=== PATIENT | male | born 1990 | race Caucasian/White ===

== ENCOUNTER → 2016-09-18 | Outpatient (CLI) | payer OTHER | LOC: BMCIMAGING 15:49 | PROVIDERS: ATTEND Family Medicine | DX: S93.491A Sprain of other ligament of right ankle, initial encounter (principal); M25.471 Effusion, right ankle ==

== ENCOUNTER 2017-05-07 13:33 | Emergency (ER) | payer MEDICAID ==
[2017-05-07 13:38] VITALS: BP 161/97
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
== END 2017-05-07 15:38 | disposition home or self-care (01) ==
DX: M76.61 Achilles tendinitis, right leg (principal); V19.00XA Pedal cycle driver injured in collision with unspecified motor vehicles in nontraffic accident, initial encounter; Y92.89 Other specified places as the place of occurrence of the external cause; Y99.8 Other external cause status; Y93.55 Activity, bike riding
CPT/HCPCS: L4386

== ENCOUNTER 2018-04-01 11:11 | Emergency (ER) | payer MEDICAID ==
[2018-04-01] MEDS ORDERED: ACETAMINOPHEN 500 MG TAB PO ONE (12:05)
--- NOTE | 2018-04-01 12:06 | EDPHY ---
General - History Smoking Status: Never smoked Time Seen by Provider: 04/01/18 12:02 Narrative: CLINICAL IMPRESSION: VIRAL TONSILLITIS ASSESSMENT/PLAN: 27-year-old otherwise healthy male presents to the emergency department with 3 days of sore throat, congestion and cough. Vital signs stable, afebrile, tolerating secretions well, no hypoxia. No clinical signs to suggest acute mucopurulent otitis media, acute sinusitis, exudative tonsillitis, peritonsillar abscess, retropharyngeal abscess, epiglottitis, or lower respiratory disease. Rapid strep is negative. Patient declined flu testing. No clinical indication for antibiotics at this time. Throat culture pending. Supportive [id number] treatments discussed, PCP follow-up recommended, warning signs return to emergency department sooner alignment discharge. DIFFERENTIAL DX: Differential includes but not limited to viral pharyngitis, tonsillitis, strep tonsillitis, influenza, influenza like syndrome. ED PROCEDURES: See lab and/or imaging results below Negative rapid strep ED COURSE: Patient seen examined by myself at 12:05 p.m.. Plan for rapid strep, Tylenol, suspect viral infection CHIEF COMPLAINT: Sore throat, congestion, cough HPI: 27-year-old otherwise healthy male presents to the emergency department with 3 days of sore throat, congestion, mild cough. Patient reports he is mostly bothered by his throat. He has some aching in his ears. He reports subjective fever and chills. He did not get a flu shot this year. He is concerned he may have strep throat. He denies exposure. He is able to tolerate food and liquid but with pain. He is able to tolerate secretions. No reported underlying pulmonary disease or asthma. PAST MEDICAL HISTORY: None reported Pertinent Past Surgical History: None reported Family History: Noncontributory Social History: Nonsmoker, otherwise healthy REVIEW OF SYSTEMS: A full 10 point review of systems was negative except for those mentioned in HPI. PHYSICAL EXAM: General Appearance: Alert, oriented, appropriate, cooperative, NAD, well hydrated, non-toxic appearing, tolerating secretions well VSS, no hypoxia. HEENT: TMs are clear bilaterally no perforation or FB, no injection, no evidence of serous or mucopurulent otitis. Oropharynx is with mild erythema, no exudates or tonsillar asymmetry. Dentition without abnormality. Eyes: PERRLA, no acute vision change, nystagmus, swelling, discharge, pain or photosensitivity. Conjunctiva pink, no pallor or injection Neck: Supple, nontender, no lymphadenopathy, no midline pain, FROM, no meningismus. Respiratory: There are no retractions, lungs are clear to auscultation. Cardiac: Regular rate and rhythm, no murmurs or gallops. Skin: Warm, dry, no rashes, no nodules on palpation. MEDICAL DECISION MAKING: Patient was seen independently. Secondary supervising physician at time of evaluation was: Dr. Verma . Diagnosis: Viral tonsillitis. New, requires workup Summary: See Assessment and Plan for summary of ED visit Clinical lab tests: ordered / reviewed. Patient Progress: Improved, stable for discharge. (Terry Vogt) Medical Decision Making: I did not see this patient while he was in the emergency department. However his care was discussed with the PA while the patient was in the department. I agree with treatment plan and management (Larry Verma) - Objective Vital Signs: Initial Vital Signs Temperature (C) 36.8 C 04/01/18 11:13 Heart Rate 92 04/01/18 11:13 Respiratory Rate 18 04/01/18 11:13 Blood Pressure 142/92 H 04/01/18 11:13 O2 Sat (%) 95 04/01/18 11:13 O2 Delivery Mode Room Air Allergies/Adverse Reactions: No Known Allergies Allergy (Verified 04/01/18 11:13) Home Medications: Medication Instructions Recorded NK [No Known Home Meds] 05/07/17 Laboratory Results: 04/01/18 04/01/18 Unknown 12:08 Group A Strep Screen NEGATIVE (NEGATIVE) Group A Strep DNA Pending Medications Given: Discontinued Medications Acetaminophen (Tylenol) 1,000 mg PO EDNOW ONE Stop: 04/01/18 12:06 Last Admin: 04/01/18 12:10 Dose: 1,000 mg Departure - Departure Disposition: Home, Routine, Self-Care Clinical Impression: Acute viral tonsillitis Condition: Good Instructions: Tonsillitis (ED) Additional Instructions: DISCHARGE INSTRUCTIONS FROM YOUR DOCTOR Thank you for visiting our emergency department today. You were treated by a physician office manager executive assistant today and your case was reviewed with our ED Attending physician. Please keep in mind that discharge from the emergency department does not mean that there is nothing wrong - it simply means that we have not identified an emergency condition that requires further evaluation or treatment in the hospital. You should always plan to follow up with primary care for re- evaluation of your condition in the next 2-3 days. If you have been referred to a specialist, please call as soon as possible (today or tomorrow) to schedule your follow up appointment at the appropriate time. RAPID STREP TEST WAS NEGATIVE. A CULTURE IS PENDING. WE WILL CALL YOU IN 2-3 DAYS IF YOU REQUIRE AN ANTIBIOTIC. YOUR INFECTION APPEARS VIRAL. PLEASE REST, USE TYLENOL AND IBUPROFEN FOR PAIN, GARGLE SALT WATER, STAY WELL-HYDRATED. FOLLOW UP WITH A PRIMARY CARE. RETURN TO THE EMERGENCY DEPARTMENT FOR SEVERE PAIN, INABILITY TO SWALLOW YOUR OWN SALIVA, NECK SWELLING, SHORTNESS OF BREATH, HIGH FEVERS, OR ANY OTHER CONCERN. People present with illnesses and injuries in different ways, and it is always possible that we have missed something. You may always return for re-evaluation if symptoms worsen or if they are not improving or if you develop new/different symptoms. Again, thank you for choosing our emergency department. We hope that you feel better. Referrals: NONE *PRIMARY CARE P,. [Primary Care Provider] - As per Instructions Kelly Whitt MD [Medical Doctor] - 1-2 days without fail Stand Alone Forms: Work Excuse
[2018-04-01 13:07] VITALS: BP 127/79
== END 2018-04-01 13:06 | disposition home or self-care (01) ==
DX: J03.90 Acute tonsillitis, unspecified (principal)

== ENCOUNTER 2018-04-21 12:35 | Emergency (ER) | payer MEDICAID ==
[2018-04-21] MEDS ORDERED: ONDANSETRON 4 MG/2 ML VIAL IVP ONE (14:03)
[2018-04-21] MEDS ORDERED: LORazepam 2 MG/ML INJ IVP ONE ×2 (14:03→14:50)
[2018-04-21] MEDS ORDERED: NS 1,000 ML IV ONE (14:03)
--- NOTE | 2018-04-21 14:06 | EDPHY ---
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 He states that he drinks daily but stopped 12 hr ago. He has vomited 5 times this morning and feels shaky and has palpitations. No fever. No recent trauma. He states that this is consistent with alcohol withdrawal symptoms he has had before. Previously he has been through a 5 day recover program in [place]. Severity: Severe Modifying factors: Gradually worsening REVIEW OF SYSTEMS: Constitutional: denies: chills, fever, recent illness, recent injury EENTM: denies: blurred vision, double vision, nose congestion Respiratory: denies: cough, shortness of breath Cardiac: denies: chest pain, irregular heart rate, lightheadedness, palpitations Gastrointestinal/Abdominal: See HPI Genitourinary: denies: dysuria, frequency, hematuria, pain Musculoskeletal: denies: joint pain, muscle pain Skin: denies: lesions, rash, jaundice, bruising Neurological: See HPI denies: headache, numbness, paresthesia, tingling, dizziness, weakness Hematologic/Lymphatic: denies: blood clots, easy bleeding, easy bruising Immunologic/allergic: denies: HIV/AIDS, transplant 10 systems reviewed and negative except as noted EXAM: GENERAL: Moderate distress, anxious, tremulous HEAD: Atraumatic, normocephalic. EYES: Pupils equal round and reactive to light, extraocular movements intact, sclera anicteric, conjunctiva are normal. ENT: TMs normal, nares patent, oropharynx clear without exudates. Moist mucous membranes. NECK: Normal range of motion, supple without lymphadenopathy or JVD. LUNGS: Breath sounds clear to auscultation bilaterally and equal. No wheezes rales or rhonchi. HEART: Regular rate and rhythm without murmurs, rubs or gallops. ABDOMEN: Soft, nontender, normoactive bowel sounds. No guarding, no rebound. No masses appreciated. BACK: No CVA tenderness, no spinal tenderness, step-offs or deformities EXTREMITIES: Tremulous, Normal range of motion, no pitting or edema. No clubbing or cyanosis. NEUROLOGICAL: Cranial nerves II through XII grossly intact. Normal speech, normal gait. 5/5 strength, normal movement in all extremities, normal sensation , normal reflexes PSYCH: Normal mood, normal affect. SKIN: Warm, dry, normal turgor, no visible rashes or lesions. Source: Patient Exam Limitations: No limitations - Personal History Current Tetanus/Diphtheria Vaccine: Yes Tetanus Vaccine Date: < 10 years - Medical/Surgical History Hx Asthma: No Hx Chronic Respiratory Disease: No Hx Diabetes: No Hx Cardiac Disease: No Hx Renal Disease: No Hx Cirrhosis: No Hx Alcoholism: No Hx HIV/AIDS: No Hx Splenectomy or Spleen Trauma: No Other PMH: right leg fx, alcoholism - Family History Significant Family History: No pertinent family hx - Social History Smoking Status: Never smoked Alcohol Use: Heavy Drug Use: None Constitutional: Initial Vital Signs Temperature (C) 37.0 C 04/21/18 12:47 Heart Rate 124 H 04/21/18 12:47 Respiratory Rate 22 H 04/21/18 12:47 Blood Pressure 126/77 H 04/21/18 12:47 O2 Sat (%) 96 04/21/18 12:47 O2 Delivery Mode Room Air Allergies/Adverse Reactions: No Known Allergies Allergy (Verified 04/21/18 12:47) Home Medications: Medication Instructions Recorded NK [No Known Home Meds] 05/07/17 Medical Decision Making ED Course/Re-evaluation: 3:00 p.m. patient is feeling much better. His received a 2nd dose of Ativan. We will disposition to the [facility] will give Librium take-home pack. Differential Diagnosis: Partial list of the Differential diagnosis considered include but were not limited to; alcohol withdrawal, anxiety, dehydration and although unlikely based on the history and physical exam, I also considered infection, electrolyte abnormality, appendicitis, hernia. - Data Points Medications Given: Discontinued Medications Chlordiazepoxide (Librium 25 Mg Prepack#6) 1 btl TAKEHOME EDNOW ONE Stop: 04/21/18 15:10 Last Admin: 04/21/18 15:56 Dose: 1 btl Sodium Chloride (Ns) 1,000 mls @ 0 mls/hr IV EDNOW ONE; Wide Open PRN Reason: Protocol Stop: 04/21/18 14:04 Last Admin: 04/21/18 14:25 Dose: 1,000 mls Lorazepam (Ativan Injection) 1 mg IVP EDNOW ONE Stop: 04/21/18 14:04 Last Admin: 04/21/18 14:25 Dose: 1 mg Lorazepam (Ativan Injection) 1 mg IVP EDNOW ONE Stop: 04/21/18 14:51 Last Admin: 04/21/18 15:56 Dose: Not Given Ondansetron HCl (Zofran) 4 mg IVP EDNOW ONE Stop: 04/21/18 14:04 Last Admin: 04/21/18 14:20 Dose: 4 mg Departure - Departure Disposition: Home, Routine, Self-Care Clinical Impression: Alcohol withdrawal Qualifiers: Complication of substance-induced condition: uncomplicated Qualified Code(s): F10.230 - Alcohol dependence with withdrawal, uncomplicated Condition: Serious Instructions: Chlordiazepoxide (By mouth), Alcohol Withdrawal (ED) Referrals: NONE *PRIMARY CARE P,. [Primary Care Provider] - As per Instructions Rossana Curry MD [Medical Doctor] - As per Instructions Stand Alone Forms: Work Excuse
[2018-04-21] MEDS ORDERED: CHLORDIAZEPOXIDE 25MG PREPK#6 BTL TAKEHOME ONE (15:09)
[2018-04-21 15:59] VITALS: BP 127/77
== END 2018-04-21 16:00 | disposition home or self-care (01) ==
DX: F10.230 Alcohol dependence with withdrawal, uncomplicated (principal); E86.9 Volume depletion, unspecified
CPT/HCPCS: 96374; J2060; J2405